=== PATIENT | male | born 1995 | race Caucasian/White ===

== ENCOUNTER 2021-01-15 03:45 | Emergency (ER) | payer OTHER ==
[~2021-01-15] VITALS: Ht 175.3 cm; Wt 85.7 kg
[2021-01-15 03:50] VITALS: BP 139/90
[2021-01-15] MEDS ORDERED: ALUMINUM HYD/MAG/SIMETHICONE 30 ML UDC PO ONE (04:10)
[2021-01-15 05:55] LABS: BASOPHILS # (AUTO) 0.2 K/uL (0.00-0.22); BASOPHILS % (AUTO) 4.4 % (0.0-2.0); EOSINOPHILS # (AUTO) 0.1 K/uL (0-0.4); EOSINOPHILS % (AUTO) 1.5 % (0.0-4.0); HEMOGLOBIN 14.8 g/dL (12.0-18.0); LYMPHOCYTES # (AUTO) 1.7 K/uL (2.0-11.5); LYMPHOCYTES % (AUTO) 32.2 % (20.5-51.1); MEAN CORPUSCULAR HEMOGLOBIN 28 pg (27-31); MEAN CORPUSCULAR HGB CONC 34 g/dL (33-37); MEAN CORPUSCULAR VOLUME 82.5 fL (80-94); MONOCYTES # (AUTO) 0.3 K/uL (0.8-1.0); MONOCYTES % (AUTO) 6.1 % (1.7-9.3); NEUTROPHILS % (AUTO) 55.8 % (42.2-75.2); PLATELET COUNT (AUTO) 226 K/uL (140-450); RED BLOOD CELL COUNT(AUTO) 5.21 MIL/uL (4.20-6.10); RED CELL DISTRIBUTION WIDTH 12.9 % (11.6-13.7); WHITE BLOOD COUNT (AUTO) 5.4 K/uL (4.8-10.8)
[2021-01-15 06:31] LABS: ANION GAP 10.9 (8-16); CARBON DIOXIDE 29.2 mmol/L (21-32); CREATININE 0.8 mg/dL (0.6-1.3); POTASSIUM 4.1 mmol/L (3.5-5.1)
[2021-01-15 06:41] LABS: ALBUMIN 3.4 g/dL (3.4-5.0); BILIRUBIN,DIRECT 0.1 mg/dL (0.0-0.3); TOTAL BILIRUBIN 0.6 mg/dL (0.0-1.0)
[2021-01-15] MEDS ORDERED: NACL 0.9% 1,000 ML IV ONE (06:50)
[2021-01-15] MEDS ORDERED: METF-988 PO (08:53)
[2021-01-15] MEDS ORDERED: CLOT14CR2 TP (08:53)
[2021-01-15 09:08] VITALS: BP 127/83
== END 2021-01-15 09:09 | disposition home or self-care (01) ==
LOC: MED 03:45
DX: E11.65 Type 2 diabetes mellitus with hyperglycemia (principal); N47.6 Balanoposthitis; Z79.84 Long term (current) use of oral hypoglycemic drugs; Z79.899 Other long term (current) drug therapy
CPT/HCPCS: 36415; 80048; 80076; 81002; 83690; 85025; 87491; 96360; 99283; J7030

== ENCOUNTER 2021-03-24 08:15 | Emergency (ER) | payer OTHER ==
[~2021-03-24] VITALS: Ht 175.3 cm; Wt 75.7 kg
[~2021-03-24 08:15] MED LIST: CLOT14CR2 TP; METF-988 PO
[2021-03-24 08:19] VITALS: BP 121/84
[2021-03-24] MEDS ORDERED: NACL 0.9% 1,000 ML IV ONE (08:50)
--- NOTE | 2021-03-24 09:00 | NUR ---
26 YO MALE BIB SELF WITH C/O WEAKNESS SINCE YESTERDAY. STATES HE HAS BEEN FEELING INCREASINGLY WEAK WITH HEADACHE AND DIARRHEA, STATES "I THINK MY SUGAR MIGHT BE TOO HIGH OR TOO LOW". DENIES CP, SOB, FEVER, CHILLS. ACCUCHECK IN TRIAGE 409. ABD SOFT NON TENDER. LUNG SOUNDS CLEAR. MEDHX: KRISTIE SMITH
[2021-03-24 09:08] LABS: BASOPHILS % (AUTO) 0.1 % (0.0-2.0); EOSINOPHILS % (AUTO) 0.8 % (0.0-4.0); HEMATOCRIT 47.1 % (36-52); HEMOGLOBIN 16.2 g/dL (12.0-18.0); LYMPHOCYTES % (AUTO) 20.6 % (20.5-51.1); MEAN CORPUSCULAR HEMOGLOBIN 29 pg (27-31); MEAN CORPUSCULAR HGB CONC 34 g/dL (33-37); MEAN CORPUSCULAR VOLUME 83.7 fL (80-94); MONOCYTES # (AUTO) 0.3 K/uL (0.8-1.0); MONOCYTES % (AUTO) 5.8 % (1.7-9.3); NEUTROPHILS # (AUTO) 3.7 K/uL (1.8-7.7); NEUTROPHILS % (AUTO) 72.7 % (42.2-75.2); PLATELET COUNT (AUTO) 231 K/uL (140-450); RED BLOOD CELL COUNT(AUTO) 5.62 MIL/uL (4.20-6.10); RED CELL DISTRIBUTION WIDTH 12.3 % (11.6-13.7); WHITE BLOOD COUNT (AUTO) 5.1 K/uL (4.8-10.8)
[2021-03-24 09:26] LABS: ALBUMIN 3.7 g/dL (3.4-5.0); ANION GAP 12.7 (8-16); CARBON DIOXIDE 27.7 mmol/L (21-32); CREATININE 0.8 mg/dL (0.6-1.3); MAGNESIUM 1.9 mg/dL (1.8-2.4); POTASSIUM 4.4 mmol/L (3.5-5.1); TOTAL BILIRUBIN 0.7 mg/dL (0.0-1.0)
--- NOTE | 2021-03-24 09:37 | NUR ---
PT AMBULATED TO RESTROOM STEADY GAIT
[2021-03-24] MEDS ORDERED: METF-988 PO (09:59)
[2021-03-24 10:49] VITALS: BP 117/83
--- NOTE | 2021-03-24 10:49 | NUR ---
Patient discharged with v/s stable. Written and verbal after care instructions given and explained. Patient alert, oriented and verbalized understanding of instructions. Ambulatory with steady gait. All questions addressed prior to discharge. ID band removed. Patient advised to follow up with PMD. Rx of METFORMIN given. Patient educated on indication of medication including possible reaction and side effects. Opportunity to ask questions provided and answered.
[2021-03-24 11:02] LABS: BILIRUBIN,URINE NEGATIVE (NEGATIVE); BLOOD, URINE TRACE-L (NEGATIVE); COLOR,URINE YELLOW (YELLOW); LEUKOCYTE ESTERASE ,URINE NEGATIVE (NEGATIVE); NITRITE, URINE NEGATIVE (NEGATIVE); UGLUCOSE 3+ (NEGATIVE)
[2021-03-24 11:03] LABS: APPEARANCE,URINE HAZY (CLEAR)
[2021-03-24 11:18] LABS: RBC,URINE 0-5 /HPF (0-5)
[2021-03-24 11:19] LABS: WBC,URINE 0-5 /HPF (0-5)
== END 2021-03-24 10:49 | disposition home or self-care (01) ==
LOC: MED 08:15
DX: E11.65 Type 2 diabetes mellitus with hyperglycemia (principal); R53.1 Weakness; Z79.84 Long term (current) use of oral hypoglycemic drugs; Z79.899 Other long term (current) drug therapy
CPT/HCPCS: 36415; 80053; 81001; 82803; 83690; 83735; 84484; 85025; 93005; 96360; 99284; J7030

== ENCOUNTER 2021-04-04 23:20 | Emergency (ER) | payer OTHER ==
[~2021-04-04] VITALS: Ht 175.3 cm; Wt 73.9 kg
[2021-04-04 23:28] VITALS: BP 122/69
--- NOTE | 2021-04-04 23:31 | NUR ---
TO LOBBY A/W BED AMBULATORY
--- NOTE | 2021-04-05 00:19 | NUR ---
PT TAKEN TO BED 5
--- NOTE | 2021-04-05 00:27 | NUR ---
Ultrasound at bedside.
--- NOTE | 2021-04-05 00:30 | NUR ---
RECEIVED IN BED 5 WITH C/O PENIS PAIN. MUCH FACIAL GRIMACING IS NOTED PMH : KRISTIE NKDA
[2021-04-05] MEDS ORDERED: KETOROLAC 60 MG/2 ML VIAL IM ONE (02:15)
[2021-04-05] MEDS ORDERED: NYSTRC TP (02:56)
[2021-04-05] MEDS ORDERED: IBUP-2213 PO (02:56)
[2021-04-05 02:58] VITALS: BP 122/69
== END 2021-04-05 02:58 | disposition home or self-care (01) ==
LOC: MED 23:20
DX: N50.811 Right testicular pain (principal); N50.812 Left testicular pain; I86.1 Scrotal varices; E11.9 Type 2 diabetes mellitus without complications; Z79.899 Other long term (current) drug therapy; Z79.84 Long term (current) use of oral hypoglycemic drugs
CPT/HCPCS: 76870; 81002; 96372; 99284; J1885; Q0092